=== PATIENT | male | born 1950 | race Caucasian/White ===

== ENCOUNTER → 2016-05-17 | Outpatient (CLI) | payer BC ==
[2015-08-28 15:25] VITALS: BP 128/60
[~2016-05-17] MED LIST: EZET10TA3 PO; LISI10TA2 PO
--- NOTE | 2016-05-17 16:15 | KCIC ---
PROCEDURE Two-view chest. HISTORY Hoarseness. Difficulty swallowing a few weeks. Recent EGD. COMPARISON No comparison. FINDINGS The cardiomediastinal silhouette is normal. Lungs are clear. No pleural effusion or pneumothorax. No acute bone abnormality. Thoracic spine findings compatible with diffuse idiopathic skeletal hyperostosis. IMPRESSION No acute cardiopulmonary process. Electronically signed by: Wesley Hung MD (May 17, 2016 16:14:36)
== END | disposition home or self-care (01) ==
LOC: KCIC 15:57
PROVIDERS: ATTEND Internal Medicine Gastroenterology
DX: R49.0 Dysphonia (principal); M48.14 Ankylosing hyperostosis [Forestier], thoracic region
CPT/HCPCS: 71020

== ENCOUNTER → 2018-05-16 | Outpatient (CLI) | payer MEDICARE, OTHER ==
[2015-08-28 15:25] VITALS: BP 128/60
[~2018-05-16] MED LIST changes: +BARIUM SULFATE 340 GM SUSPENSION. PO ONE; +BARIUM SULFATE 60% 355 ML SUSP PO ONE; +BARIUM SULFATE 700 MG TABLET PO ONE; +EZET10TA18 PO; -EZET10TA3 PO; +SIMETHICONE/SOD BICARB/CITRIC ACID PACKET. PO ONE
--- NOTE | 2018-05-16 11:30 | RAD ---
Esophagram, 05/16/2018: History: Dysphagia, trouble swallowing, hiatal hernia The study was performed utilizing high density and regular liquid barium. 4.6 minutes of fluoroscopy time is utilized. 15 static and dynamic fluoroscopic sequences were recorded. The swallowing mechanism is intact. There is no obstruction to flow of the barium through the cervical esophagus esophageal. The thoracic peristalsis is decreased with scattered tertiary contractions. This results in some stasis of barium in the thoracic esophagus. There is a small hiatal hernia. There is a smooth stricture at the level of the GE junction which opened up to a diameter of 4-5 mm during this study. No discrete mass or significant mucosal irregularity was delineated. No gastroesophageal reflux was demonstrated. When the patient ingested a dense pill, as requested, there was initial obstruction to passage of this pill through the stricture. It did not pass with a subsequent swallow of water. It did pass with a swallow of the liquid barium. IMPRESSION: 1. Small hiatal hernia. 2. 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 3. Tertiary contractions in the thoracic esophagus.
== END | disposition home or self-care (01) ==
LOC: RAD 08:42
PROVIDERS: ATTEND Internal Medicine Gastroenterology
DX: K44.9 Diaphragmatic hernia without obstruction or gangrene (principal); K22.2 Esophageal obstruction; K22.4 Dyskinesia of esophagus
CPT/HCPCS: 74220